=== PATIENT | male | born 1975 | race Asian ===

== ENCOUNTER 2017-07-25 13:00 | Emergency (ER) | payer OTHER ==
[~2017-07-25] VITALS: Ht 165.1 cm; Wt 60.0 kg
[2017-07-25] MEDS ORDERED: LIDOCAINE HCL 1% 20ML VIAL (Pyxis) INJ INFIL ONE (14:30)
[2017-07-25] MEDS ORDERED: TETANUS, DIPHTHERIA, PERTUSSIS VAC/PF 0.5ML (>7YR OLD) IM ONE (14:30)
[2017-07-25 16:15] VITALS: BP 118/82
== END 2017-07-25 17:18 | disposition home or self-care (01) ==
LOC: ER 13:26
DX: S01.111A Laceration without foreign body of right eyelid and periocular area, initial encounter (principal); R51 Headache; Y08.89XA Assault by other specified means, initial encounter; Y93.89 Activity, other specified; Y92.89 Other specified places as the place of occurrence of the external cause
CPT/HCPCS: 12011; 90471; 90715; 99283; J3490

== ENCOUNTER 2017-07-27 08:57 | Emergency (ER) | payer OTHER ==
[~2017-07-27] VITALS: Ht 157.5 cm; Wt 50.0 kg
[2017-07-27] MEDS ORDERED: HYDROCODONE/ACETAMINOPHEN 5/325MG TABLET PO ONE (11:15)
[2017-07-27 11:45] VITALS: BP 110/69
== END 2017-07-27 13:32 | disposition home or self-care (01) ==
LOC: ER 12:26
DX: R51 Headache (principal)
CPT/HCPCS: 70450; 70486; 99284

== ENCOUNTER 2017-08-01 11:01 | Emergency (ER) | payer OTHER ==
[~2017-08-01] VITALS: Ht 157.5 cm; Wt 50.0 kg
[2017-08-01 14:12] VITALS: BP 111/75
== END 2017-08-01 15:49 | disposition home or self-care (01) ==
LOC: ER 11:01
DX: Z48.02 Encounter for removal of sutures (principal)
CPT/HCPCS: 99282; Z7610